=== PATIENT | female | born 1950 | race Caucasian/White ===

== ENCOUNTER → 2020-08-07 12:38 | Outpatient (CLI) | payer MEDICARE, OTHER, SELFPAY ==
--- NOTE | 2020-08-07 12:53 | MR_ITS ---
PROCEDURE: MR ANGIO HEAD WO CON CLINICAL INDICATION: vertigo PATIENT COMPLAINS OF VERTIGO WITH NAUSEA AND INCREASED NUMBER OF HEADACHES. NO PRIOR. COMPARISON: No exams were available for comparison TECHNIQUE: 3D [id number] images performed without contrast with multi slab reformats. The vertebral basilar system has an unremarkable appearance without aneurysm, occlusion, or dissection. No obvious aneurysm AVM or major intracranial occlusive process apparent. Single-shot MRV is unremarkable. FINDINGS: Negative MRA of the brain. IMPRESSION: Dictated by: João Ni MD 08/09/2020 10:09 João Ni MD in [place] 08/09/2020 10:09
--- NOTE | 2020-08-07 12:53 | MR_ITS ---
PROCEDURE: MR HEAD/BRAIN WO/W CON CLINICAL INDICATION: vertigo PATIENT COMPLAINS OF VERTIGO WITH NAUSEA AND INCREASED NUMBER OF HEADACHES. COMPARISON: MR MR ANGIO HEAD WO CON from 08/07/2020 TECHNIQUE: Routine multiplanar multi echo sequences are performed without gadolinium enhancement. FINDINGS: No midline shift, mass effect, intracranial hemorrhage, or hydrocephalus is evident. No enhancing lesions. No evidence of acute infarction. Nonspecific periventricular and subcortical T2 white matter hyperintensities. There are small cystic areas within the basal ganglia on both sides and could be due to a dilated perivascular spaces versus old small lacunar infarctions. The cerebellopontine angles, cerebellum, and brainstem have an unremarkable appearance. No mastoid effusion or sinus air-fluid level. IMPRESSION: 1. No acute intracranial findings. 2. Nonspecific scattered periventricular and subcortical T2 white matter hyperintensities which may be due to ischemic gliotic change from microvascular disease. Migraine headache is an additional consideration. Demyelinating process felt to be less likely due to the imaging characteristics but not totally excluded. Small cystic areas are present in the basal ganglia may be due to old small lacunar infarctions or dilated perivascular spaces. Dictated by: João Ni MD 08/09/2020 10:03 João Ni MD in [place] 08/09/2020 10:03
[2020-08-07 13:08] LABS: Blood Urea Nitrogen 14 mg/dl (7-17); Estimated Glomerular Filt Rate 71 ml/min (>60); GFR (African American) 86 ML/MIN (>60)
== END ==
PROVIDERS: PCP Family Medicine; Visit Provider Specialist
DX: R42 Dizziness and giddiness (principal)
CPT/HCPCS: 36415; 70544; 70553; 82565; 84520; A9576